=== PATIENT | female | born 1970 | race Two or more races ===

== ENCOUNTER 2020-05-19 11:43 | Outpatient (REF) | payer OTHER, SELFPAY ==
[2020-05-19 12:09] LABS: COVID-19 Test Negative (Negative); IDNOW Serial# 55D5AD1C
== END 2020-05-19 11:44 | disposition home or self-care (01) ==
LOC: HO.EMPCOV 11:43
PROVIDERS: Visit Provider Internal Medicine
DX: Z20.828 Contact with and (suspected) exposure to other viral communicable diseases (principal)
CPT/HCPCS: 87635; C9803

== ENCOUNTER 2020-05-21 11:51 | Outpatient (REF) | payer OTHER, SELFPAY ==
[2020-05-21 12:22] LABS: COVID-19 Test Negative (Negative)
== END 2020-05-21 11:52 | disposition home or self-care (01) ==
LOC: HO.LAB 11:51
PROVIDERS: Visit Provider Internal Medicine
DX: Z20.828 Contact with and (suspected) exposure to other viral communicable diseases (principal)
CPT/HCPCS: 87635; C9803

== ENCOUNTER 2020-06-04 10:20 | Outpatient (REF) | payer OTHER, SELFPAY ==
--- NOTE | 2020-06-04 10:22 | XR_ITS ---
EXAMINATION: XR UPRIGHT FRONTAL VIEW OF EACH KNEE XR LATERAL AND PATELLAR VIEW LEFT KNEE CLINICAL INFORMATION: Pain. COMPARISON: None. TECHNIQUE: Upright frontal view of both knees. Lateral and patellar view left knee. FINDINGS: RIGHT KNEE: No fracture, focal lesion or periosteal new bone. The joint spaces appear preserved. The articular surfaces are smooth. No osteophytes or erosion. No abnormal soft tissue calcification. LEFT KNEE: There is no acute fracture, subluxation or suspicious focal lesion. There is mild narrowing in the medial compartment with mild subchondral sclerosis. There is mild marginal osteophyte involving the lateral facet of the patella. No other significant osteophytes or erosions. No significant joint fluid. No definite opaque loose body or significant soft tissue abnormality. XR/XR knee standing BI IMPRESSION: No acute abnormality. Mild arthritic change involving the left knee including the medial compartment and patellofemoral compartment.
--- NOTE | 2020-06-04 10:22 | XR_ITS ---
EXAMINATION: XR UPRIGHT FRONTAL VIEW OF EACH KNEE XR LATERAL AND PATELLAR VIEW LEFT KNEE CLINICAL INFORMATION: Pain. COMPARISON: None. TECHNIQUE: Upright frontal view of both knees. Lateral and patellar view left knee. FINDINGS: RIGHT KNEE: No fracture, focal lesion or periosteal new bone. The joint spaces appear preserved. The articular surfaces are smooth. No osteophytes or erosion. No abnormal soft tissue calcification. LEFT KNEE: There is no acute fracture, subluxation or suspicious focal lesion. There is mild narrowing in the medial compartment with mild subchondral sclerosis. There is mild marginal osteophyte involving the lateral facet of the patella. No other significant osteophytes or erosions. No significant joint fluid. No definite opaque loose body or significant soft tissue abnormality. XR/XR knee LT 2V IMPRESSION: No acute abnormality. Mild arthritic change involving the left knee including the medial compartment and patellofemoral compartment.
== END 2020-06-04 10:21 | disposition home or self-care (01) ==
LOC: HO.HOSX 10:20
PROVIDERS: Visit Provider Orthopaedic Surgery
DX: M25.561 Pain in right knee (principal); M25.562 Pain in left knee
CPT/HCPCS: 73560; 73565

== ENCOUNTER 2020-06-05 07:17 | Outpatient (REF) | payer OTHER, SELFPAY ==
--- NOTE | 2020-06-05 07:19 | MR_ITS ---
EXAMINATION: MR KNEE WITHOUT CONTRAST, LEFT CLINICAL INFORMATION: 50-year-old female with left knee pain and swelling. History of meniscus and anterior cruciate ligament tear. Prior knee surgery. COMPARISON: Knee radiographs from 06/04/2020. TECHNIQUE: MRI of the left knee without contrast was performed using routine sequences on a high-field 1.5 Destiny scanner. FINDINGS: MENISCI: Medial Meniscus: The medial meniscus is small, and the free edge of the meniscus is truncated from [id number] horn. This has the appearance of prior partial meniscectomy. On a single sagittal image, there is a questionable finding of a small oblique tear with minimally displaced flap at the free edge of the anterior horn (sagittal image 15 of 23, series 3); however, the finding in question in this postoperative knee might represent minimal postoperative fibrous tissue adjacent to the meniscal free edge. Lateral Meniscus: Intact. No evidence of tear, discoid meniscus or parameniscal cyst. LIGAMENTS: Cruciate: There is an old proximal rupture of the anterior cruciate ligament.. There is approximately 0.7 cm anterior tibial subluxation with focal configuration of the intact posterior cruciate ligament. Collateral: At the medial knee, the tibial collateral ligament is intact. At the lateral knee, the iliotibial band, fibular collateral ligament, biceps femoris tendon and popliteus tendon are intact. EXTENSOR MECHANISM: The distal quadriceps tendon is normal. The patellar tendon and patellar retinacula are normal. Mild linear strands of postoperative fibrous tissue within medial aspect of Hoffa's fat pad. ARTICULAR CARTILAGE/BONE: Patellofemoral Compartment: Patella is properly positioned within the trochlear groove. Articular cartilage of the patella is maintained. Irregular thinning and fissuring of moderate depth at the mid third and medial facet of the trochlea. Minimal marginal osteophyte formation at the degenerated compartment. Medial Compartment: Minimal marginal osteophyte formation. There is thinning of articular cartilage of the tibial plateau. A delamination defect in articular cartilage of the weightbearing femoral condyle measures 0.6 cm in AP dimension (sagittal image 17 of 23, series 4). No bone bruise or fracture. Lateral Compartment: Normal. JOINT FLUID AND BURSAE: Small joint effusion. No Yusuf's cyst. MR/MR knee LT wo con IMPRESSION: * There is an old rupture of the anterior cruciate ligament. * Findings consistent with prior partial medial meniscectomy. There is an equivocal finding of a small oblique, flap tear at the free edge of the anterior horn of the medial meniscus. * Mild osteoarthritis of the patellofemoral and medial tibiofemoral compartments. * Small knee joint effusion is present.
== END 2020-06-05 07:18 | disposition home or self-care (01) ==
LOC: HO.MRI 07:17
PROVIDERS: PCP Family Medicine; Visit Provider Orthopaedic Surgery
DX: S83.242A Other tear of medial meniscus, current injury, left knee, initial encounter (principal)
CPT/HCPCS: 73721

== ENCOUNTER → 2020-07-01 08:37 | Outpatient (BNVA) | payer OTHER, SELFPAY | PROVIDERS: PCP Family Medicine; Visit Provider Orthopaedic Surgery | DX: M25.562 Pain in left knee (principal) | CPT/HCPCS: 20610; J1040 ==

== ENCOUNTER 2020-07-11 07:09 | Emergency (ER) | payer OTHER, SELFPAY ==
--- NOTE | 2020-07-11 07:15 | ED_ITS ---
HPI - Dizziness General Chief Complaint: Dizziness Stated Complaint: dizzy Time Seen by Provider: 07/11/20 07:15 Source: patient Mode of arrival: ambulatory Limitations: no limitations History of Present Illness MD elicited complaint: dizziness and vertigo Onset (ago): day(s) (3) Timing: sudden onset and intermittent Severity: moderate Description: room spinning Context: change in body position and other (noted she had a fullness in her L ear then since then dizziness with turning head or rapid movements) History of similar symptoms: No Exacerbating factors: movement/ambulation and change in body position Relieving factors: remaining still and keeping eyes closed Associated symptoms: nausea, change in hearing and ear fullness Related Data Previous Rx's Medication Instructions Recorded meclizine 25 mg PO TID PRN #30 tab 07/11/20 ondansetron 4 mg PO Q8H PRN #20 tab 07/11/20 prednisone 40 mg PO DAILY 5 Days #10 tab 07/11/20 Allergies Allergy/AdvReac Type Severity Reaction Status Date / Time No Known Allergies Allergy Unverified 03/13/20 19:49 [No Known Allergies*] Review of Systems Review of Systems: Constitutional : No Weight loss, No Fever, No Chills, No Fatigue, No Malaise ENT/Mouth : No sore throat, No Rhinorrhea, pos L ear fullness Eyes: No Eye Pain, No Swelling, No Redness Cardiovascular : No Chest Pain, No SOB, No Dyspnea on Exertion, No Orthopnea, No Edema, No Palpitations Respiratory : No Cough, No Sputum, No Wheezing Gastrointestinal : pos Nausea, No Vomiting, No Diarrhea, No Constipation, No abdominal Pain, No Hematochezia, No Melena Genitourinary : No Dysuria, No Urinary Frequency, No Hematuria, Musculoskeletal : No joint pain, No Myalgias, No Joint Swelling Skin : No Skin Lesions, No rash Neuro : No Weakness, No Numbness, pos Dizziness, No Headache Psych : No Anxiety/Panic, No Depression Heme/Lymph: No Bruising, No Bleeding,No Lymphadenopathy Endocrine : No Polyuria, No Polydipsia All other systems reviewed and are negative [facility] Past Medical History Attestation statement: The following information was validated with the patient. Medical History Humerus surgical neck fracture Surgical History History of partial hysterectomy Family History Family History (Updated 06/04/20 @ 10:38 by Candy Sen CMA) Mother No problems noted. Father No problems noted. Social History Social History (Updated 07/11/20 @ 07:24 by Hayley Huitron DO) Alcohol intake: never Smoking Status: Never smoker Smoked in Last 30 Days: No Use of substances other than those prescribed or required for medical reasons: No Advance Directives: No Advance Directives Information Provided: No Current occupational status: employed Current occupation: [employer] - Left Handed Physical Exam Vital Signs: Vital Signs: Last Vital Signs Temp 98.2 F 07/11/20 07:17 Pulse 59 07/11/20 07:17 Resp 16 07/11/20 07:17 BP 167/80 H 07/11/20 07:17 Pulse Ox 98 07/11/20 07:17 Body Mass Index 28.5 Appearance: Alert. Oriented X3. No acute distress. Eyes: Pupils equal, round and reactive to light. ENT: Pharynx normal. L ear moderate serous effusion with some bulging of drum, no TM perforation no erythema Neck: Normal inspection. Neck supple. CVS: Normal heart rate and rhythm. Pulses normal. Respiratory: No respiratory distress. Breath sounds normal. Abdomen: Soft and nontender. Skin: Skin warm and dry. Normal skin color. Normal skin turgor. Extremities: No lower extremity edema. No calf ttp Neuro: Oriented X 3. No motor deficit. No sensory deficit. no ataxia no drift Course Course Course Narrative: dizziness improved still feels full in L ear discussed reasons to return MDM - Dizziness MDM Narrative Medical decision making narrative: 50 yo female otherwise healthy here with 3 days where she lost hearing in L ear feels there is a sea shell over here then developed dizziness with turning head position changes - rapid in onset and room is spinning, no neuro deficits, no GIB symptoms reported, no CP/SOB her exam and history consistent with vertigo - dispo per results and findings Discharge Plan Discharge Clinical Impression: Dizziness Patient Disposition: Home, Self-Care Instructions: Dizziness (ED) Additional Instructions: return to ED for any worsening symptoms or concerns Prescriptions: New prednisone 20 mg tablet 40 mg PO DAILY 5 Days Qty: 10 RF: 0 meclizine 25 mg tablet 25 mg PO TID PRN (Reason: dizziness) Qty: 30 RF: 0 ondansetron 4 mg tablet,disintegrating 4 mg PO Q8H PRN (Reason: nausea and vomiting) Qty: 20 RF: 0 Referrals: Patito Mosley MD [Primary Care Provider] - 2 days (Tuesday if not better) Stand Alone Forms: Work/School Release
[2020-07-11 07:17] VITALS: BP 167/80; PULSE 59; RESP 16; TEMP 36.8; O2SAT 98; BMI 28.5
--- NOTE | 2020-07-11 07:21 | CT_ITS ---
EXAMINATION: CT HEAD WITHOUT CONTRAST CLINICAL INFORMATION: Dizziness. COMPARISON: None TECHNIQUE: Contiguous axial imaging was performed from the skull base to vertex without intravenous administration of contrast. This CT examination was performed using dose optimization techniques as appropriate, variously including the following: *Automated exposure control *Adjustment of mA and/or kV according to patient size (this includes techniques or standardized protocols for targeted exams where dose is matched to indication/reason for exam; i.e. extremities or head) *Use of iterative reconstruction technique DLP: 6:30 mGy-cm FINDINGS: There is no evidence of acute intracranial hemorrhage or territorial infarction. No abnormal mass effect or midline shift is seen. Diamond to white matter differentiation is well preserved. No extra-axial fluid collections are identified. The ventricles are normal in size. There is no abnormal attenuation within the brain parenchyma. The osseous structures and soft tissues are normal. The mastoid air cells and visualized portions of the paranasal sinuses are well aerated. CT/CT head/brain wo con IMPRESSION: No acute intracranial process seen.
[2020-07-11] MEDS: Meclizine HCl 25 MG TABLET PO (07:32)
[2020-07-11] MEDS: Loratadine 10 MG TABLET PO (07:32)
== END 2020-07-11 08:19 | disposition home or self-care (01) ==
PROVIDERS: Emergency Provider Emergency Medicine; PCP Family Medicine
DX: R42 Dizziness and giddiness (principal)
CPT/HCPCS: 70450; 99284

== ENCOUNTER 2020-08-25 09:33 | Outpatient (REF) | payer OTHER, SELFPAY ==
--- NOTE | ~2020-08-25 | US_ITS ---
EXAMINATION: MM DIAGNOSTIC DIGITAL BREAST TOMOSYNTHESIS, BILATERAL US DIAGNOSTIC ULTRASOUND BREAST, RIGHT CLINICAL INFORMATION: Screening converted to diagnostic. At time of exam, patient notes right medial breast pain for one week and two-year history of asymmetry breast, right larger. Prior history benign right breast biopsy (fibroadenoma). The lifetime risk of breast cancer based on the Tyrer-Cuzick Model is 5%. COMPARISON: Mammography: 04/09/2019, outside mammography 10/11/2017 and 10/04/2017 ([facility]). TECHNIQUE: Digital breast tomosynthesis is performed in both the craniocaudal and mediolateral oblique views along with computer-aided detection (CAD). Synthesized 2D images are generated from the tomosynthesis. Additional views are obtained: Spot right MLO x3. Ultrasound right breast is targeted to the areas of clinical concern upper inner quadrant. Grayscale imaging and color Doppler are performed. FINDINGS: There are scattered areas of fibroglandular density (ACR BI-RADS breast composition Category b). There is mild asymmetry of the breasts, right larger. In retrospect, similar to prior outside exams dating back to 2018. No progressive enlargement over time. There are no inflammatory changes. No skin thickening or coarsening of the Raimro's ligaments. The parenchymal pattern is similar to prior exams. The fibroadenoma posterior 12:30 o'clock right breast with central ribbon shaped biopsy clip marker is stable measuring approximately 2.3 x 1.3 cm. Prior measurement 2.5 x 1.5 cm on outside mammography 2018. The axilla are unremarkable. Targeted ultrasound right breast shows the fibroadenoma as noted on mammography. There is no interval new cystic or solid mass or architectural abnormality. No focal duct ectasia. No skin thickening or edema tracking in soft tissue planes. Results are discussed with the patient at time of visit. US/US breast RT limited IMPRESSION: 1. No significant changes from prior studies. 2. No mammographic evidence of malignancy or inflammatory changes. 3. Known right posterior upper fibroadenoma stable. 4. Mild breast asymmetry, right larger, stable. ASSESSMENT: BI-RADS 2: Benign RECOMMENDATION: 1. Patient's right breast pain should be managed based on the clinical impression. 2. Otherwise, routine annual screening mammography. This patient's information was entered into a reminder system with a target due date for their next mammogram.
== END 2020-08-25 09:34 | disposition home or self-care (01) ==
LOC: HO.MAMMO 09:33
PROVIDERS: Visit Provider Family Medicine
DX: N64.4 Mastodynia (principal); N64.89 Other specified disorders of breast
CPT/HCPCS: 76642; 77062; 77066

== ENCOUNTER 2020-09-01 10:08 | Emergency (ER) | payer OTHER, SELFPAY ==
--- NOTE | ~2020-09-01 | XR_ITS ---
EXAMINATION: XR KNEE, LEFT CLINICAL INFORMATION: Acute on chronic knee pain. COMPARISON: 06/04/2020 TECHNIQUE: Four views of the left knee. FINDINGS: No fracture or subluxation. Mild lateral compartment joint space narrowing. Enthesophyte formation at the patella. Moderate size joint effusion. Small tricompartmental marginal osteophytes. XR/XR knee LT 4V IMPRESSION: Mild tricompartmental degenerative change. Moderate joint effusion.
[2020-09-01 10:13] VITALS: BP 148/76; PULSE 63; RESP 16; TEMP 36.1; O2SAT 97; BMI 30.2
[2020-09-01] MEDS: Ibuprofen 600 MG TABLET PO (12:53)
[2020-09-01] MEDS: oxyCODONE HCl Immed Release 5 MG TABLET PO (12:54)
--- NOTE | 2020-09-01 13:09 | ED.EXTPRO ---
HPI - Extremity Problem General Chief complaint: Extremity Injury, Lower Stated complaint: left knee pain,no inj Time Seen by Provider: 09/01/20 11:06 Source: patient Mode of arrival: ambulatory Limitations: no limitations History of Present Illness HPI Narrative: 50-year-old female with a past medical history of a left ACL and meniscus tear which she had surgery to fix the ACL but not the meniscus approximately 8 years ago who has been being followed by Dr. Tracey and had a cortisone injection approximately 1 month ago and had an MRI on 06/05/2020 revealing old rupture of ACL and prior partial medial meniscectomy along with mild osteoarthritis and a small knee joint effusion presenting to the ED with complaints of worsening left knee pain over the past few days worse today. MD Complaint: extremity pain and joint swelling Onset (ago): day(s) (Few days worse today) Pain Consistency: constant Location: left Severity scale (1-10): >10 Quality: aching and constant Radiation: none Relieving factors: nothing Exacerbating factors: range of motion, weight bearing and walking Associated symptoms: denies other symptoms Related Data Previous Rx's Medication Instructions Recorded meclizine 25 mg PO TID PRN #30 tab 07/11/20 ondansetron 4 mg PO Q8H PRN #20 tab 07/11/20 prednisone 40 mg PO DAILY 5 Days #10 tab 07/11/20 ibuprofen 800 mg PO Q8H PRN #14 tab 09/01/20 oxycodone 5 mg PO BID PRN #10 tab 09/01/20 Allergies Allergy/AdvReac Type Severity Reaction Status Date / Time No Known Allergies Allergy Unverified 03/13/20 19:49 [No Known Allergies*] Review of Systems Review of Systems: Constitutional : No Weight loss, No Fever, No Chills, No Night Sweats, No Fatigue, No Malaise ENT/Mouth : No Hearing loss, No Ear Pain, No Nasal Congestion, No Sinus Pain, No Hoarseness, No sore throat, No Rhinorrhea, No Swallowing Difficulty Eyes: No Eye Pain, No Swelling, No Redness, No Foreign Body, No Discharge, No Vision Changes Cardiovascular : No Chest Pain, No SOB, No Dyspnea on Exertion, No Orthopnea, No Edema, No Palpitations Respiratory : No Cough, No Sputum, No Wheezing, No Smoke Exposure, No Dyspnea Gastrointestinal : No Nausea, No Vomiting, No Diarrhea, No Constipation, No abdominal Pain, No Hematochezia, No Melena Genitourinary : no irregular bleeding, No Dysuria, No Urinary Frequency, No Hematuria, No Urinary Incontinence, No Urgency, No Flank Pain, No Urinary Flow Changes, No Hesitancy Musculoskeletal : + joint pain, No Myalgias, No Joint Swelling Skin : No Skin Lesions, No rash Neuro : No Weakness, No Numbness, No Paresthesias, No Loss of Consciousness, No Dizziness, No Headache Psych : No Anxiety/Panic, No Depression, No SI/HI/AH/VH, No Social Issues, Heme/Lymph: No Bruising, No Bleeding,No Lymphadenopathy Endocrine : No Polyuria, No Polydipsia, No Temperature Intolerance Yes all other systems are reviewed and are negative [facility] Past Medical History Attestation statement: The following information was validated with the patient. Medical History Humerus surgical neck fracture Surgical History History of partial hysterectomy Family History Family History Mother No problems noted. Father No problems noted. Social History Social History Alcohol intake: never Smoking Status: Never smoker Smoked in Last 30 Days: No Use of substances other than those prescribed or required for medical reasons: No Advance Directives: No Advance Directives Information Provided: No Current occupational status: employed Current occupation: [employer] - Left Handed Physical Exam Vital Signs: Vital Signs: Last Vital Signs Temp 97.0 F 09/01/20 10:13 Pulse 63 09/01/20 10:13 Resp 16 09/01/20 10:13 BP 148/76 H 09/01/20 10:13 Pulse Ox 97 09/01/20 10:13 Body Mass Index 30.2 vital signs have been reviewed as normal and appeared to be correct. Blood pressure normal. Heart rate normal. Respiration rate normal. Temperature normal. Oxygen saturation normal. Appearance: Alert. Oriented X3. No acute distress. Head: Normal external exam. Normocephalic. Atraumatic. Eyes: PERRLA. EOMI. Conjunctiva and sclera normal. Eyelids normal. ENT: Pharynx normal. Uvula midline. Moist mucous membranes. Neck: Normal inspection. Neck supple. FROM. No adenopathy. Thyroid Normal. No meningeal signs. No neck mass noted. CVS: Normal heart rate and rhythm. Heart sound normal. No murmurs noted. Pulses normal throughout. Respiratory: No respiratory distress. Painless inspiration. Breath sounds normal. No wheezes/rales/rhonchi noted. Chest nontender. No accessory muscle usage noted or decreased air movement noted. Back:Full range of motion noted. Skin: Skin warm and dry. Normal skin color. Normal skin turgor. No rashes/lesions/lacerations noted. Extremities: To left knee patient has tenderness to palpation with mild soft tissue swelling questioning joint effusion patient does have limited range of motion due to pain. No obvious laxity noted. No calf tenderness noted No lower extremity edema. Otherwise all other Extremities exhibit normal range of motion and nontender. Neuro: Oriented X 3. No motor deficit. No sensory deficit. Reflexes normal. Course Course Course Narrative: 50-year-old female with a past medical history of ACL tear and partial meniscus tear being followed by Dr. Tracey who had a cortisone shot 1 month ago and an MRI on 06/15/2021 presenting to the ED with complaints of worsening pain. Imaging obtained and revealed tricompartmental degenerative changes and moderate joint effusion. Patient was requesting to be admitted for surgery for a scope although I discussed with Dr. Sheets and that is not possible at this time. Therefore will place in a knee immobilizer provided crutches and treat symptomatically along with instructions to follow up with Dr. Tracey as scheduled on Tuesday. Patient understands agrees with this plan. MDM - Extremity (Nontraumatic) Imaging Data Left knee x-ray: Attestation: I personally reviewed and interpreted this imaging study as follows: Radiologist's impression: FINDINGS: No fracture or subluxation. Mild lateral compartment joint space narrowing. Enthesophyte formation at the patella. Moderate size joint effusion. Small tricompartmental marginal osteophytes. XR/XR knee LT 4V IMPRESSION: Mild tricompartmental degenerative change. Moderate joint effusion. Discharge Plan Discharge Clinical Impression: Chronic pain of left knee, Tricompartment degenerative joint disease of knee, Effusion of knee joint, left Patient Disposition: Home, Self-Care Instructions: Crutch Instructions (ED), Knee Immobilizer (ED) Prescriptions: New ibuprofen 800 mg tablet 800 mg PO Q8H PRN (Reason: pain) Qty: 14 RF: 0 oxycodone 5 mg tablet 5 mg PO BID PRN (Reason: pain) Qty: 10 RF: 0 No Action prednisone 20 mg tablet 40 mg PO DAILY 5 Days Qty: 10 RF: 0 meclizine 25 mg tablet 25 mg PO TID PRN (Reason: dizziness) Qty: 30 RF: 0 ondansetron 4 mg tablet,disintegrating 4 mg PO Q8H PRN (Reason: nausea and vomiting) Qty: 20 RF: 0 Referrals: Louie Tracey MD [Physician] - 2 days Stand Alone Forms: Work/School Release Print Language: Irish
== END 2020-09-01 13:31 | disposition home or self-care (01) ==
PROVIDERS: Emergency Provider Emergency Medicine; PCP Family Medicine
DX: M17.12 Unilateral primary osteoarthritis, left knee (principal); M25.462 Effusion, left knee; G89.29 Other chronic pain; M25.562 Pain in left knee
CPT/HCPCS: 73564; 99283

== ENCOUNTER → 2020-09-03 14:00 | Outpatient (BNVA) | payer OTHER, SELFPAY | PROVIDERS: Visit Provider Orthopaedic Surgery ==

== ENCOUNTER 2021-05-26 08:30 | Emergency (ER) | payer OTHER, SELFPAY ==
--- NOTE | 2021-05-26 | ECG_ITS ---
Test Reason : CHEST PAIN Blood Pressure : / mmHG Vent. Rate : 062 BPM Atrial Rate : 062 BPM P-R Int : 172 ms QRS Dur : 122 ms QT Int : 428 ms P-R-T Axes : 049 -04 001 degrees QTc Int : 434 ms Normal sinus rhythm Right bundle branch block Abnormal ECG No previous ECGs available Referred By: Generic ED Physician Electronically Signed By:BREE MARIE MD
--- NOTE | ~2021-05-26 | CT_ITS ---
EXAMINATION: CT SOFT TISSUE NECK WITH CONTRAST CLINICAL INFORMATION: Neck pain and difficulty swallowing. COMPARISON: None TECHNIQUE: Following the intravenous administration of 100 mL of Omnipaque 350 intravenous contrast, helical imaging was performed in the axial plane with generation of coronal and sagittal reformatted images. This CT examination was performed using dose optimization techniques as appropriate, variously including the following: *Automated exposure control *Adjustment of mA and/or kV according to patient size (this includes techniques or standardized protocols for targeted exams where dose is matched to indication/reason for exam; i.e. extremities or head) *Use of iterative reconstruction technique DLP: 1150 mGy-cm FINDINGS: There are small reactive lymph nodes in the left submandibular space with a short axis dimension of 5 mm on axial image 56/5 and left submental space measuring 6 mm on axial image 69/5. No enlarged neck lymph nodes seen. The parotid glands are homogeneous in attenuation. The submandibular glands are normal. No contour abnormality or pathologic enhancement is seen within the oral cavity or pharyngeal mucosal space. The laryngeal structures are normal. There is mild bilateral tonsillar hypertrophy with mild narrowing of pharyngeal airway but no evidence of pharyngeal abscess or mass. The parapharyngeal space is symmetrical and normal. The carotid sheath vasculature opacify normally. No extramucosal soft tissue mass or fluid collection is seen. There is a retropharyngeal fluid collection. The thyroid gland is normal. The superior mediastinum is unremarkable. The lung apices are clear. The mastoid air cells and visualized portions of the paranasal sinuses are well aerated. The temporomandibular joints are normal. No periapical disease is identified. No osseous abnormalities are seen. The imaged portions of the brain parenchyma are unremarkable. Mild degenerative disc changes C5-C6 disc level with ventral and posterior spondylosis noted. CT/CT soft tissue neck w con IMPRESSION: Mild bilateral tonsillar enlargement without any tonsillar mass or abscess. Retropharyngeal fluid collection suggestive of cellulitis/nonspecific. No abnormal cervical neck lymphadenopathy seen.
--- NOTE | ~2021-05-26 | CT_ITS ---
EXAMINATION: CT CHEST WITH CONTRAST CLINICAL INFORMATION: Neck and chest pain. Difficulty swallowing COMPARISON: None TECHNIQUE: Multidetector volumetric CT imaging of the chest was obtained after the administration of 65 mL of Omnipaque 350 intravenous contrast without immediate adverse reactions. Axial MIP volume rendering provided. Sagittal and coronal reformatted images were obtained. This CT examination was performed using dose optimization techniques as appropriate, variously including the following: *Automated exposure control *Adjustment of mA and/or kV according to patient size (this includes techniques or standardized protocols for targeted exams where dose is matched to indication/reason for exam; i.e. extremities or head) *Use of iterative reconstruction technique DLP: 489 mGy-cm FINDINGS: [employer]: Unremarkable LUNGS: There is linear scarring or subsegmental atelectasis at the lung bases. No endobronchial or endotracheal lesion is seen.. Lungs are otherwise clear. MEDIASTINUM: There is mild coronary artery calcification. Heart does not appear enlarged. There is no pericardial effusion. The thoracic aorta is normal in caliber. There are no enlarged hilar or mediastinal lymph nodes. The visualized thyroid gland is unremarkable. The esophagus is unremarkable. No fluid collection in the mediastinum is seen. PLEURA: There is no pleural effusion. No pleural mass or thickening. No pneumothorax. AXILLA: No lymphadenopathy. There is a deep right breast nodule adjacent to the pectoral muscles and measures 1 x 1.4 cm. This has a central high attenuation suggestive of a biopsy clip and likely corresponds to stable mammogram and ultrasound density that was previously biopsied. No other chest wall mass is seen. UPPER ABDOMEN: There are 2 low-attenuation lesions suggestive of cysts in the upper pole the right kidney. OSSEOUS STRUCTURES: There are degenerative changes of the spine. CT/CT chest w con IMPRESSION: Mild coronary artery calcification. Stable right breast nodule. Right renal cysts. Fleischner guidelines were followed.
[2021-05-26 08:47] VITALS: BP 185/89; PULSE 60; RESP 16; TEMP 36.7; O2SAT 97; BMI 30.2
--- NOTE | 2021-05-26 09:49 | ED.GENADULT ---
HPI - General Adult General Chief complaint: General Medical Stated complaint: Neck pain, trouble swallowing, heavy chest Time Seen by Provider: 05/26/21 09:46 Source: patient Mode of arrival: ambulatory Limitations: no limitations History of Present Illness HPI narrative: 51-year-old female woke up this morning with neck pain, upper back pain, pain in the upper chest with swallowing. Symptoms started 04:00 in the morning, pain described as burning sensation in the upper chest and upper back with swallowing, no drooling, no voice change, no difficulty breathing, pain is intermittent only when she swallow, described as moderate 5/10, no other associated symptoms, no photophobia, no chest pain, no shortness of breath, no fever, no chills. Patient has no suspicion for COVID infection. No trauma to the neck or chest. Patient declined any recent travel or lower extremity swelling. Patient appear anxious in the emergency department. Related Data Previous Rx's Medication Instructions Recorded meclizine 25 mg tablet 25 mg PO TID PRN #30 tab 07/11/20 ondansetron 4 mg disintegrating 4 mg PO Q8H PRN #20 tab 07/11/20 tablet prednisone 20 mg tablet 40 mg PO DAILY 5 Days #10 tab 07/11/20 ibuprofen 800 mg tablet 800 mg PO Q8H PRN #14 tab 09/01/20 oxycodone 5 mg tablet 5 mg PO BID PRN #10 tab 09/01/20 ibuprofen 800 mg tablet 800 mg PO Q8H #90 tab 09/12/20 amoxicillin 875 mg-potassium 1 tab PO Q12H #20 tab 05/26/21 clavulanate 125 mg tablet (Augmentin) prednisone 20 mg tablet 20 mg PO BID #10 tab 05/26/21 Allergies Allergy/AdvReac Type Severity Reaction Status Date / Time No Known Allergies Allergy Unverified 03/13/20 19:49 [No Known Allergies*] Review of Systems Review of Systems: All other systems are reviewed and are negative Constitutional: Reports as per HPI and Reports no additional constitutional complaints Eyes: Reports as per HPI and Reports no additional eye complaints Reports system reviewed and no additional complaints, except as documented Cardiovascular: Reports as per HPI and Reports no additional cardiovascular complaints Respiratory: Reports as per HPI and Reports no additional respiratory complaints Gastrointestinal: Reports as per HPI and Reports no additional gastrointestinal complaints Genitourinary: Reports no additional female genitourinary complaints Musculoskeletal: Reports no additional musculoskeletal complaints Skin/Breast: Reports system reviewed and no additional complaints, except as docu Psychiatric: Reports no additional psychiatric complaints Endocrine: Reports no additional endocrine complaints Hematologic/Lymphatic: Reports no additional hematologic/lymphatic complaints Allergic/Immunologic: Reports no additional allergic/immunologic complaints Reports system reviewed and no additional complaints, except as documented and Reports Abnormal speech present [facility] Past Medical History Medical History Humerus surgical neck fracture Surgical History History of partial hysterectomy Family History Family History Mother No problems noted. Father No problems noted. Social History Social History Alcohol intake: never Smoked in Last 30 Days: No Use of substances other than those prescribed or required for medical reasons: No Advance Directives: No Current occupational status: employed Current occupation: [employer] - Left Handed Physical Exam Vital Signs: Vital Signs: Last Vital Signs Temp 98.5 F 05/26/21 13:10 Pulse 64 05/26/21 13:10 Resp 18 05/26/21 13:10 BP 155/72 H 05/26/21 13:10 Pulse Ox 98 05/26/21 13:10 Body Mass Index 30.2 Vital signs have been reviewed as appeared to be correct. Blood pressure elevated. Heart rate normal. Respiration rate normal. Temperature normal. Oxygen saturation normal. Appearance: Alert. Oriented X3. Anxious. Head: Normal external exam. Normocephalic. Atraumatic. No Xie signs noted. No raccoon eyes noted Eyes: PERRLA. EOMI. Conjunctiva and sclera normal. Eyelids normal. ENT: TM's Normal. Pharynx normal. Uvula midline. Moist mucous membranes. No trismus noted. No drooling noted. No muffled voice noted. Neck: Normal inspection. Neck supple. FROM. No adenopathy. Thyroid Normal. No meningeal signs. No neck mass noted. CVS: Normal heart rate and rhythm. Heart sound normal. No murmurs noted. Pulses normal throughout. Respiratory: No respiratory distress. Painless inspiration. Breath sounds normal. No wheezes/rales/rhonchi noted. Chest nontender. No accessory muscle usage noted or decreased air movement noted. Abdomen: Soft and nontender. Bowel sounds normal in all 4 quadrants. No distention noted. No organomegaly noted. No visible injury noted. Back: No CVA tenderness. Full range of motion noted. Skin: Skin warm and dry. Normal skin color. Normal skin turgor. No rashes/lesions/lacerations noted. Extremities: No lower extremity edema. Extremities exhibit normal range of motion. Extremities nontender. Neuro: Oriented X 3. Cranial nerve exam: II-XII are grossly intact No motor deficit. No sensory deficit. Reflexes normal. Course Course Course Narrative: Assessment and plan. 51-year-old female came in for evaluation of difficulty swallowing, patient had a negative D-dimer to suggest for PE, had unremarkable chest CT with IV contrast, CT of the soft tissue neck with IV is suggesting retropharyngeal fluid that could be nonspecific versus cellulitis otherwise patent airway, no discrete abscess on the CT scan. Physical exam patient was patent airway, no voice change. Will discharge the patient on Augmentin/prednisone with close follow-up with PCP/ENT. Medical Decision Making Lab Data Lab results reviewed: Yes I reviewed the patient's lab results. Result diagrams: 05/26/21 10:03 05/26/21 10:03 Labs: Lab Results 05/26/21 05/26/21 05/26/21 Range/Units 10:03 10:03 10:03 WBC 7.3 (4.8-10.8) X10*3/uL RBC 4.72 (4.20-5.50) X10*6/uL Hgb 13.3 (12.0-16.0) g/dl Hct 40.5 (37.0-47.0) % MCV 85.8 (80.0-98.0) fL MCH 28.2 (27.0-33.0) pg MCHC 32.8 (31.0-35.0) g/dl RDW 13.5 (11.0-16.0) % Plt Count 241 (160-400) X10*3/uL MPV 10.6 (9.4-12.3) fL Immature Gran % (Auto) 0.3 (0.0-0.4) % Neut % (Auto) 64.4 (45-73) % Lymph % (Auto) 28.0 (20-40) % [place] % (Auto) 5.3 (2-11) % Eos % (Auto) 1.6 (0-4) % Baso % (Auto) 0.4 (0-2) % Lymph # (Auto) 2.0 (1.2-4.9) X10*3/uL [place] # (Auto) 0.4 (0.1-1.2) X10*3/uL Eos # (Auto) 0.1 (0.0-0.4) X10*3/uL Baso # (Auto) 0.0 (0.0-0.2) X10*3/uL Abs Immat Gran (auto) 0.02 (0.00-0.03) X10*3/uL Absolute Neuts (auto) 4.7 (2.0-8.3) x10*3/uL Absolute Nucleated RBC 0.000 (0.0-0.012) X10*3/uL Nucleated RBC % (auto) 0.0 (0.0-0.2) /100WBC D-Dimer High Sensitivty NG/ML Sodium 139 (135-145) mmol/L Potassium 3.9 (3.3-5.1) mmol/L Chloride 104 (96-108) mmol/L Carbon Dioxide 27 (22-29) mmol/L Anion Gap 12 (12-20) BUN 8 L (9-16) mg/dL Creatinine 0.75 (0.5-1.4) mg/dL Estim Creat Clear Calc 79.9 Estimated GFR > 60 Random Glucose 93 (60-115) mg/dL Calcium 9.3 (8.4-10.2) mg/dL Total Bilirubin 0.6 (0.0-1.0) mg/dL Direct Bilirubin 0.2 (0.0-0.5) mg/dL AST 19 (5-31) U/L ALT 16 (0-31) U/L Alkaline Phosphatase 78 (39-117) U/L Total Creatine Kinase 59 (26-140) U/L Troponin I High Sens 3.7 (<3.5-17.0) ng/L B-Natriuretic Peptide 43 (<100) pg/mL Total Protein 7.0 (6.5-8.0) g/dL Albumin 4.1 (3.5-5.0) g/dL Lipase 18 (8-78) U/L Urine Color Urine Appearance Urine pH (5.0-8.0) Ur Specific [place] (1.005-1.025) Urine Protein (NEG-TRACE) MG/DL Urine Glucose (UA) (NEG) MG/DL Urine Ketones (NEG) MG/DL Urine Blood (NEG) Urine Nitrite (NEG) Ur Leukocyte Esterase (NEG) Influenza Type A (PCR) (Negative) Influenza Type B (PCR) (Negative) RSV RNA Qual (PCR) (Negative) SARS-CoV-2 RNA (RT-PCR) (Negative) 05/26/21 05/26/21 05/26/21 Range/Units 10:03 10:04 11:05 WBC (4.8-10.8) X10*3/uL RBC (4.20-5.50) X10*6/uL Hgb (12.0-16.0) g/dl Hct (37.0-47.0) % MCV (80.0-98.0) fL MCH (27.0-33.0) pg MCHC (31.0-35.0) g/dl RDW (11.0-16.0) % Plt Count (160-400) X10*3/uL MPV (9.4-12.3) fL Immature Gran % (Auto) (0.0-0.4) % Neut % (Auto) (45-73) % Lymph % (Auto) (20-40) % [place] % (Auto) (2-11) % Eos % (Auto) (0-4) % Baso % (Auto) (0-2) % Lymph # (Auto) (1.2-4.9) X10*3/uL [place] # (Auto) (0.1-1.2) X10*3/uL Eos # (Auto) (0.0-0.4) X10*3/uL Baso # (Auto) (0.0-0.2) X10*3/uL Abs Immat Gran (auto) (0.00-0.03) X10*3/uL Absolute Neuts (auto) (2.0-8.3) x10*3/uL Absolute Nucleated RBC (0.0-0.012) X10*3/uL Nucleated RBC % (auto) (0.0-0.2) /100WBC D-Dimer High Sensitivty < 150 NG/ML Sodium (135-145) mmol/L Potassium (3.3-5.1) mmol/L Chloride (96-108) mmol/L Carbon Dioxide (22-29) mmol/L Anion Gap (12-20) BUN (9-16) mg/dL Creatinine (0.5-1.4) mg/dL Estim Creat Clear Calc Estimated GFR Random Glucose (60-115) mg/dL Calcium (8.4-10.2) mg/dL Total Bilirubin (0.0-1.0) mg/dL Direct Bilirubin (0.0-0.5) mg/dL AST (5-31) U/L ALT (0-31) U/L Alkaline Phosphatase (39-117) U/L Total Creatine Kinase (26-140) U/L Troponin I High Sens (<3.5-17.0) ng/L B-Natriuretic Peptide (<100) pg/mL Total Protein (6.5-8.0) g/dL Albumin (3.5-5.0) g/dL Lipase (8-78) U/L Urine Color STRAW Urine Appearance CLEAR Urine pH 7.0 (5.0-8.0) Ur Specific [place] <= 1.005 (1.005-1.025) Urine Protein NEG (NEG-TRACE) MG/DL Urine Glucose (UA) NEG (NEG) MG/DL Urine Ketones NEG (NEG) MG/DL Urine Blood NEG (NEG) Urine Nitrite NEG (NEG) Ur Leukocyte Esterase NEG (NEG) Influenza Type A (PCR) NEGATIVE (Negative) Influenza Type B (PCR) NEGATIVE (Negative) RSV RNA Qual (PCR) NEGATIVE (Negative) SARS-CoV-2 RNA (RT-PCR) NEGATIVE (Negative) Imaging Data Chest CT: Radiologist's impression: Mild coronary artery calcification. Stable right breast nodule. Right renal cysts. ? Soft tissue neck CT with IV contrast: Radiologist's impression: Mild bilateral tonsillar enlargement without any tonsillar mass or abscess. ? Retropharyngeal fluid collection suggestive of cellulitis/nonspecific. ? No abnormal cervical neck lymphadenopathy seen. ? Discharge Plan Discharge Clinical Impression: Pharyngitis Patient Disposition: Home, Self-Care Instructions: Pharyngitis (ED) Prescriptions: New amoxicillin-pot clavulanate [Augmentin] 875-125 mg tablet 1 tab PO Q12H Qty: 20 RF: 0 prednisone 20 mg tablet 20 mg PO BID Qty: 10 RF: 0 No Action ibuprofen 800 mg tablet 800 mg PO Q8H Qty: 90 RF: 3 prednisone 20 mg tablet 40 mg PO DAILY 5 Days Qty: 10 RF: 0 meclizine 25 mg tablet 25 mg PO TID PRN (Reason: dizziness) Qty: 30 RF: 0 ondansetron 4 mg tablet,disintegrating 4 mg PO Q8H PRN (Reason: nausea and vomiting) Qty: 20 RF: 0 ibuprofen 800 mg tablet 800 mg PO Q8H PRN (Reason: pain) Qty: 14 RF: 0 oxycodone 5 mg tablet 5 mg PO BID PRN (Reason: pain) Qty: 10 RF: 0 Referrals: Patito Mosley MD [Primary Care Provider] - 2 days Irwin Muller [Physician] - 2 days Stand Alone Forms: Work/School Release
[2021-05-26 09:53] VITALS: BP 171/86; PULSE 60; RESP 18; TEMP 37; O2SAT 97
[2021-05-26 10:09] LABS: MANUAL DIFF FLAG NO
[2021-05-26] MEDS: Magnesium Hydrox/Alum Hydrox 30 ML ORAL.SUSP PO (10:09)
[2021-05-26] MEDS: 0.9 % Sodium Chloride 1,000 ML 999 ML IVCONT (10:09)
[2021-05-26] MEDS: LORazepam 1 MG TABLET PO (10:09)
[2021-05-26] MEDS: Lidocaine HCl Viscous 2 % 15 ML SOLUTION MUCOUS MEM (10:09)
[2021-05-26 10:10] LABS: Basophils Percent Auto 0.4 % (0-2); Eosinophils Absolute Auto 0.1 X10*3/uL (0.0-0.4); Eosinophils Percent Auto 1.6 % (0-4); Hematocrit 40.5 % (37.0-47.0); Hemoglobin 13.3 g/dl (12.0-16.0); Imm Gran Abs Auto 0.02 X10*3/uL (0.00-0.03); Imm Gran Pct Auto 0.3 % (0.0-0.4); Mean Corpuscular HGB Conc 32.8 g/dl (31.0-35.0); Mean Corpuscular Hemoglobin 28.2 pg (27.0-33.0); Mean Corpuscular Volume 85.8 fL (80.0-98.0); Mean Platelet Volume 10.6 fL (9.4-12.3); Monocytes Absolute Auto 0.4 X10*3/uL (0.1-1.2); Monocytes Percent Auto 5.3 % (2-11); Neutrophils Absolute Auto 4.7 x10*3/uL (2.0-8.3); Neutrophils Percent Auto 64.4 % (45-73); Platelet Count 241 X10*3/uL (160-400); Red Blood Count 4.72 X10*6/uL (4.20-5.50); Red Cell Distribution Width 13.5 % (11.0-16.0); White Blood Count 7.3 X10*3/uL (4.8-10.8)
[2021-05-26 10:20] LABS: D Dimer High Sensitivity < 150 NG/ML
[2021-05-26] MEDS: ondansetron HCL 4 MG/2 ML VIAL IVPUSH (10:24)
[2021-05-26 10:28] LABS: Alanine Aminotransferase 16 U/L (0-31); Albumin Level 4.1 g/dL (3.5-5.0); Alkaline Phosphatase 78 U/L (39-117); Anion Gap 12 (12-20); Aspartate Amino Transferase 19 U/L (5-31); Bilirubin Direct 0.2 mg/dL (0.0-0.5); Bilirubin Total 0.6 mg/dL (0.0-1.0); Blood Urea Nitrogen 8 mg/dL (9-16); Calcium 9.3 mg/dL (8.4-10.2); Carbon Dioxide 27 mmol/L (22-29); Chloride 104 mmol/L (96-108); Creatinine Clr Calc Pharmacy 79.9; Estimated Glomerular Filt Rate > 60; Glucose Random 93 mg/dL (60-115); Lipase 18 U/L (8-78); Potassium 3.9 mmol/L (3.3-5.1); Sodium 139 mmol/L (135-145)
[2021-05-26 10:30] LABS: B Type Natriuretic Peptide 43 pg/mL (<100); Troponin-I High Sensitivity 3.7 ng/L (<3.5-17.0)
[2021-05-26 10:52] LABS: Influenza A PCR NEGATIVE (Negative); Influenza B PCR NEGATIVE (Negative); Resp Syncy Virus RNA Qual PCR NEGATIVE (Negative); SARS COV2 PCR INHOUSE NEGATIVE (Negative)
[2021-05-26 11:06] VITALS: BP 156/77; PULSE 59
[2021-05-26 11:11] LABS: Appearance Urine CLEAR; Color Urine STRAW; Glucose Urine UA NEG (NEG); Leukocyte Esterase Urine NEG (NEG); Nitrite Urine NEG (NEG); Specific Gravity - Urine <= 1.005 (1.005-1.025); Urine Blood NEG (NEG); Urine Ketones NEG (NEG); Urine Protein NEG (NEG-TRACE)
[2021-05-26] MEDS: iohexoL 350 MG/ML 100 ML INFUS..BTL IV (12:51)
[2021-05-26 13:10] VITALS: BP 155/72; PULSE 64; RESP 18; TEMP 36.9; O2SAT 98
[2021-05-26 16:17] LABS: Troponin-I High Sensitivity < 3.5 ng/L (<3.5-17.0)
[2021-05-26] MEDS: predniSONE 20 MG TABLET 40 MG PO (16:36)
[2021-05-26] MEDS: Piperacillin Sodium/Tazobactam 3.375 GM in 0.9 % Sodium Chloride 50 ML IV (16:36)
== END 2021-05-26 17:13 | disposition home or self-care (01) ==
PROVIDERS: Emergency Provider Emergency Medicine; PCP Family Medicine
DX: J02.9 Acute pharyngitis, unspecified (principal); Z20.822 Contact with and (suspected) exposure to COVID-19; R07.9 Chest pain, unspecified; F41.9 Anxiety disorder, unspecified
CPT/HCPCS: 0241U; 36415; 70491; 71260; 80048; 80076; 81003; 82550; 83690; 83880; 84484; 85025; 85379; 93005; 96361; 96365; 96375; 99284; J2405; J2543; Q9967

== ENCOUNTER 2021-06-04 09:40 | Outpatient (REF) | payer OTHER, SELFPAY ==
[2021-06-05 11:36] LABS: BV Int Neg Control Negative (Negative); BV Int Pos Control Positive (Positive)
== END 2021-06-04 09:41 | disposition home or self-care (01) ==
LOC: HO.LAB 09:40
PROVIDERS: PCP Family Medicine; Visit Provider Obstetrics & Gynecology
DX: B37.3 Candidiasis of vulva and vagina (principal); R31.29 Other microscopic hematuria
CPT/HCPCS: 87086; 87480; 87510; 87660

== ENCOUNTER → 2021-06-25 11:31 | Outpatient (BNVA) | payer OTHER, SELFPAY | PROVIDERS: PCP Family Medicine; Visit Provider Obstetrics & Gynecology | DX: R31.29 Other microscopic hematuria (principal) | CPT/HCPCS: 81003 ==